=== PATIENT | male | born 1995 | race Hispanic/Latino ===

== ENCOUNTER 2024-11-08 12:17 | Emergency (ER) | payer OTHER, SELFPAY ==
[2024-11-08 12:30] VITALS: BMI 23.9
[2024-11-08 12:57] LABS: % Basophils 0.1 % (0-2); % Eosinophils 0.2 % (0-6); % Immature Granulocytes 0.2 % (0-0.5); % Monocytes 5.3 % (1.7-9.3); % Neutrophils 74.2 % (42.2-75.2); Absolute Lymphocytes 1.6 10^3/uL (1.2-3.4); Absolute Monocytes 0.4 10^3/uL (0.1-0.6); Hematocrit 39.1 % (39.0-52.0); Hemoglobin 13.7 g/dL (13.0-18.0); Mean Corpuscular Hgb 29.5 pg (27.0-31.0); Mean Corpuscular Volume 84.1 fL (80.0-94.0); Mean Platelet Volume 10.8 fL (7.4-10.4); Nucleated Red Blood Cells % 0 % (-); Platelet Count 198 10^3/uL (130-400); Red Blood Cell Count 4.65 10^6/uL (4.70-6.10); Red Cell Dist. Width 12.5 % (11.5-14.5); White Blood Cell Count 8.1 10^3/uL (4.8-10.8)
[2024-11-08 13:16] LABS: ALT (SGPT) 19 U/L (0-50); AST (SGOT) 20 U/L (17-59); Albumin 4.1 g/dl (3.5-5.0); Alkaline Phosphatase 60 U/L (38-126); Blood Urea Nitrogen 13 mg/dl (9-20); Calcium 8.7 mg/dl (8.4-10.2); Carbon Dioxide 22 mmol/L (22-30); Chloride 109 mmol/L (98-107); Estimated Creatinine Clearance > 125 ml/min; Glucose 111 mg/dl (70-99); Potassium 3.4 mmol/L (3.5-5.1); Sodium 139 mmol/L (135-145); Total Bilirubin 0.8 mg/dl (0.2-1.3); Total Protein 6.4 g/dl (6.3-8.2); eGFR > 60.00
[2024-11-08] MEDS: REGLAN 10 MG IV (13:55)
[2024-11-08] MEDS: BENADRYL 12.5 MG IV (13:55)
[2024-11-08] MEDS: NSS 1000 IV (13:55)
[2024-11-08 14:00] VITALS: BP 125/80
--- NOTE | 2024-11-08 14:19 | ED.GENMED ---
History of Present Illness
General
Chief Complaint: Chest Pain
Source: patient and police
Exam Limitations: none
Time Seen by Provider: 11/08/24 13:06
Nursing documentation reviewed up to this point in time: agreed with
History of Present Illness
History of Present Illness:
29-year-old male coming from longterm with past medical history of asthma anemia anxiety depression mood disorder presenting to the emergency department with concerns of chest tightness lightheadedness also felt intermittent tingling to his hands
bilaterally and also some floaters of his vision starting yesterday some ongoing today. Claims that he has not been taking Seroquel that he normally has over the past 4 days he was given Suboxone by mistake at the longterm. Denies any recent
illnesses or fevers.
Review of Systems
Review of Systems
Allergies reviewed?: Yes
All Other Systems: ROS reviewed and negative except as documented in HPI and ROS
Phy Exam
Physical Exam
Physical Exam:
GENERAL: Alert , in no apparent distress
EYE: pupils equal and reactive
NECK: Supple, no significant adenopathy.
ENT: o/p clr, mmm.
CARDIAC: Regular rate and rhythm .
LUNGS: Clear breath sounds bilaterally, no acute respiratory distress, no wheezes/rales/rhonchi
ABDOMEN: Soft, without focal tenderness, no r/g, no cvat
NEUROLOGICAL: Alert and oriented, no focal neuro deficits
SKIN: Warm and dry, skin intact.
MUSCULOSKELETAL: No edema, well perfused.
PSYCH: Normal and appropriate interaction.
Scores
Heart Score for Chest Pain Patients
STEMI patient?: No
History: Slightly or Non-Suspicious
ECG: Normal
Age: </= 45 years
Risk Factors: 1 or 2 Risk Factors
Troponin: </= Normal Limit
Heart Score for Chest Pain Patients: 1
Heart Score Risk: 2.5% MACE over next 6 weeks
Course
Orders/Labs/Results
Orders:
Orders
11/08/24 12:22
Electrocardiogram (*1) Urgent
Reason for Study: Chest Pain
11/08/24 12:23
EKG- Treatment ONCE
11/08/24 12:44
Complete Blood Count/With Diff Urgent
Comprehensive Metabolic Panel Urgent
Troponin I Urgent
11/08/24 13:12
Chest [CR Chest - 2 Views ] Urgent
Comment:
Reason For Exam: cp
11/08/24 13:46
Diphenhydramine [Benadryl] 12.5 mg IV NOW STA
Metoclopramide [Reglan] 10 mg IV NOW STA
11/08/24 13:47
0.9% Sodium Chloride 1000 ml [Nss] 1,000 ml IV BOLUS
11/08/24 13:59
CT Head W/o Iv Contrast Urgent
Comment:
Reason For Exam: right arm paresthesisa, vision change
11/08/24 14:56
Quetiapine Fumarate [Seroquel] 50 mg PO NOW STA
Abnormal Lab Results
11/08/24
12:44
RBC 4.65 L 10^6/uL
(4.70-6.10)
MPV 10.8 H fL
(7.4-10.4)
Lymphocytes % 20.0 L %
(20.5-51.1)
Potassium 3.4 L mmol/L
(3.5-5.1)
Chloride 109 H mmol/L
(98-107)
Creatinine 0.6 L mg/dL
(0.7-1.3)
Glucose 111 H mg/dl
(70-99)
11/08/24 12:44
11/08/24 12:44
Vital Signs
Initial and Last Documented VS:
Initial Vital Signs
Temp Pulse Resp Pulse Ox
99.8 F 66 16 97
11/08/24 12:23 11/08/24 12:23 11/08/24 12:23 11/08/24 12:23
Last Documented Vital Signs
Temp Pulse Resp Pulse Ox
99.8 F 66 16 97
11/08/24 12:23 11/08/24 12:23 11/08/24 12:23 11/08/24 12:23
MDM/Problems Addressed
MDM/Problems Addressed:
29-year-old male presenting to the emergency department today with concerns of some chest tightness lightheadedness starting yesterday also has felt some tingling to his hands bilaterally and some floaters in his vision though no current vision
changes. Vital signs normal on arrival temperature was 99.8 no white count no specific infectious symptoms. Patient generally in no distress here generally well-appearing moving all extremities normal heart and lung examination. Patient was given
normal dose of Seroquel. Patient reassessed roughly 1 hour after dose with complete resolution of all symptoms. Here workup with reassuring findings of normal labs troponin head CT and chest x-ray. Patient appears stable for discharge at this
time with low likelihood of life-threatening etiology. Return precautions given.
*Critical Care Note
Total Time (30-74mins, 75-104mins- exclusive of procedures): Not Applicable
ED Attending Note
-
Portions of this chart may have been created with voice recognition software.� Occasional wrong word or��sound alike� substitutions may have occurred due to the inherent limitations of voice recognition software.
Discharge Plan
Departure
Patient Disposition: Retirement
Date of Disposition: 11/08/24
Time of Disposition: 16:33
Patient with high blood pressure during this ER visit?: No
Condition: Good
Covid-19: Not Applicable
Discharge Problem:
Chest pain, Medication administered in error
Instructions: Chest Pain PCP Follow Up
Referrals:
NONE,* [Family Provider] -
Activity Restrictions/Additional Instructions:
You came to the emergency department today with concerns of multiple symptoms. Here your reassuring assessment. You were given your normal Seroquel dose and seem to have significant improvement of symptoms. Please continue this medication as
previously prescribed. Return for any worsening, new or concerning symptoms.
Interventions
Interventions:
*Risk Screen - Suicide Last Done: 11/08/24 12:27
*General Assessment Last Done: 11/08/24 12:31
*Neglect/Abuse Screening Last Done: 11/08/24 12:31
ED- Fall Risk Assessment Last Done: 11/08/24 12:31
*ED COVID-19 Vaccine History Last Done: 11/08/24 12:31
ED- Cardiac Assessment Last Done: 11/08/24 12:31
Discharge Date and Time
Print Language: GREENLANDIC
[2024-11-08] MEDS: SEROQUEL 50 MG PO (15:37)
[2024-11-08 15:40] VITALS: BP 132/76
[2024-11-08 16:00] VITALS: BP 144/93
[2024-11-08 17:00] VITALS: BP 137/75
== END 2024-11-08 18:16 ==
LOC: EMR 12:17
PROVIDERS: EMERGENCY PHYSICIAN Emergency Medicine
DX: T40.2X1A Poisoning by other opioids, accidental (unintentional), initial encounter (principal); R07.89 Other chest pain; J45.909 Unspecified asthma, uncomplicated; D64.9 Anemia, unspecified; F32.A Depression, unspecified; F41.9 Anxiety disorder, unspecified
CPT/HCPCS: 99285; 96374; 96375; 96361; 70450; 71046; 80053; 84484; 85025; 93005